=== PATIENT | female | born 1995 | race Two or more races ===

== ENCOUNTER → 2021-08-20 | Outpatient (CLI) | payer MEDICAID ==
[2021-08-20 13:58] LABS: Hematocrit 35.1 % (36.0-46.0); Mean Corpuscular Hemoglobin 30.7 pg (28.0-32.0); Mean Corpuscular Hgb Conc. 34.1 g/dL (32.0-36.0); Mean Corpuscular Volume 90.1 fL (80.0-100.0); Red Blood Cells 3.89 10^6/uL (4.0-5.20); Red Cell Distribution Width 12.9 % (11.8-14.3); White Blood Cell 14.5 10^3/uL (4.4-10.8)
[2021-08-20 14:09] LABS: Basophils % (manual) 0 (0.0-2.0); Metamyelocytes % 0; Myelocytes % 0; Promyelocytes % 0; Reactive Lymphocytes 0
[2021-08-20 14:10] LABS: Blast Cells 0
[2021-08-20 14:25] LABS: Band Neutrophils % (manual) 2; Eosinophils % (manual) 1 (0-7); Lymphocytes % (manual) 10 (10.0-50.0); Monocytes % (manual) 10 (0-12)
[2021-08-20 16:00] LABS: Urine Bacteria FEW /hpf (None Seen); Urine Blood Negative /uL (Negative); Urine Mucus FEW (None Seen); Urine WBC 5 /hpf (0 - 5)
== END | disposition home or self-care (01) ==
LOC: LAB 13:46
PROVIDERS: ATTEND Obstetrics & Gynecology Obstetrics
DX: Z34.80 Encounter for supervision of other normal pregnancy, unspecified trimester (principal)
CPT/HCPCS: 36415; 81001; 85007; 85027; 87086

== ENCOUNTER 2021-11-08 07:42 | Observation (INO) | payer MEDICAID ==
[2021-11-08] MEDS ORDERED: PREN-96 PO (12:31)
== END 2021-11-08 13:15 | disposition home or self-care (01) ==
LOC: LDRP 11:13
PROVIDERS: ADMIT Obstetrics & Gynecology; ATTEND Obstetrics & Gynecology
DX: O62.9 Abnormality of forces of labor, unspecified (principal); O48.0 Post-term pregnancy; Z3A.40 40 weeks gestation of pregnancy
CPT/HCPCS: 59025; 76818; 81002; G0378

== ENCOUNTER 2021-11-10 07:50 | Observation (INO) | payer MEDICAID ==
[~2021-11-10 07:50] MED LIST: PREN-96 PO
== END 2021-11-10 09:40 | disposition home or self-care (01) ==
LOC: LDRP 07:50
PROVIDERS: ADMIT Obstetrics & Gynecology; ATTEND Obstetrics & Gynecology
DX: O62.9 Abnormality of forces of labor, unspecified (principal); O48.0 Post-term pregnancy; Z3A.40 40 weeks gestation of pregnancy
CPT/HCPCS: 59025; 76818; 81002; 94762; G0378

== ENCOUNTER 2021-11-12 07:43 | Observation (INO) | payer MEDICAID ==
[~2021-11-12] VITALS: Ht 172.7 cm; Wt 72.6 kg
[2021-11-13] MEDS ORDERED: DOCU100C10 PO (06:30)
[2021-11-13] MEDS ORDERED: IBU600T PO (06:30)
== END 2021-11-12 09:46 | disposition home or self-care (01) ==
LOC: LDRP 08:00
PROVIDERS: ADMIT Obstetrics & Gynecology Obstetrics; ATTEND Obstetrics & Gynecology Obstetrics
DX: O62.9 Abnormality of forces of labor, unspecified (principal); O48.0 Post-term pregnancy; Z3A.40 40 weeks gestation of pregnancy
CPT/HCPCS: 59025; 76818; 81002; 94760; G0378

== ENCOUNTER 2021-11-12 11:25 | Inpatient (IN) | payer MEDICAID ==
[~2021-11-12] VITALS: Ht 172.7 cm; Wt 72.6 kg
[2021-11-12] MEDS ORDERED: LACTATED RINGER'S 1,000 ML IV SCH (11:45)
[2021-11-12] MEDS ORDERED: LIDOCAINE 2%HCL (LOCAL ANESTH.) INJ 10ml MDV IJ PRN (11:45)
[2021-11-12] MEDS ORDERED: BUTORPHANOL TARTRATE 2 MG/1 ML VIAL IV PRN ×2 (11:45)
[2021-11-12] MEDS ORDERED: WITCH HAZEL-GLYCERIN PAD TOP PRN (11:45)
[2021-11-12] MEDS ORDERED: DERMOPLAST 60ML BOTTLE TOP PRN (11:45)
[2021-11-12] MEDS ORDERED: PROMETHAZINE HCL 25 MG/ML 1ML IV PRN (11:45)
[2021-11-12] MEDS ORDERED: PHISODERM TOP SOLN 240ML BTL TOP PRN (11:45)
[2021-11-12 12:11] LABS: Basophils # (auto) 0.1 10 ^3/uL (0-0.2); Basophils % (auto) 0.8 % (0.0-2.0); Eosinophils # (auto) 0.1 10 ^3/uL (0-0.8); Eosinophils % (auto) 1.2 % (0.0-7.0); Hematocrit 32.3 % (36.0-46.0); Lymphocytes # (auto) 1.7 10 ^3/uL (0.4-5.4); Lymphocytes % (auto) 18.9 % (10.0-50.0); Mean Corpuscular Hemoglobin 28.7 pg (28.0-32.0); Mean Corpuscular Hgb Conc. 33.9 g/dL (32.0-36.0); Mean Corpuscular Volume 84.7 fL (80.0-100.0); Monocytes # (auto) 0.4 10 ^3/uL (0-1.3); Monocytes % (auto) 4.3 % (0.0-12.0); Neutrophils # (auto) 6.7 10 ^3/uL (1.6-8.6); Neutrophils % (auto) 74.8 % (37.0-80.0); Nucleated Red Blood Cells % 0.2 %; Red Blood Cells 3.81 10^6/uL (4.0-5.20); Red Cell Distribution Width 14.2 % (11.8-14.3); White Blood Cell 8.9 10^3/uL (4.4-10.8)
[2021-11-12 12:25] LABS: Albumin 2.7 g/dL (3.4-5.0); BUN/Creatinine Ratio 7.1; Calcium 8.9 mg/dL (8.5-10.1); Potassium 3.6 mmol/L (3.5-5.1)
[2021-11-12 12:29] LABS: INR 0.96 (0.9-1.15); Partial Thromboplastin Time 22.8 sec (23.6-33.0)
[2021-11-12] MEDS ORDERED: miSOPROStol 50 MCG per PRE-CUT 1/2 TAB PO PRN (12:30)
[2021-11-12] MEDS ORDERED: OXYTOCIN 10UNIT/ML 1ML VIAL IM ONE (12:30)
[2021-11-12] MEDS ORDERED: TERBUTALINE SULFATE 1 MG/ML 1ML VIAL SC PRN (12:30)
[2021-11-12] MEDS ORDERED: LACT. RINGERS/OXYTOCIN 20UNITS 500 ML IV ONE ×2 (12:30→13:00)
[2021-11-12] MEDS ORDERED: LACT. RINGERS/OXYTOCIN 20UNITS 1,000 ML IV SCH (12:30)
[2021-11-12 12:34] LABS: Bilirubin, Total 0.7 mg/dL (0.2-1.0); Total Protein 6.5 g/dL (6.4-8.2)
[2021-11-12 12:54] LABS: Urine Bacteria NONE SEEN /hpf (None Seen); Urine Blood Negative /uL (Negative); Urine Hyaline Cast FEW /lpf (0 - 2); Urine Specific Gravity 1.005 (1.001-1.035); Urine WBC 1 /hpf (0 - 5)
[2021-11-12 13:21] LABS: Alcohol, Urine < 3.0 mg/dL (0-10); Amphetamine Screen, Urine NEGATIVE (NEGATIVE); Barbiturate Scree,Urine NEGATIVE (NEGATIVE); Benzodiazephine Screen, Urine NEGATIVE (NEGATIVE); Cannabinoid Screen, Urine NEGATIVE (NEGATIVE); Cocaine Screen, Urine NEGATIVE (NEGATIVE); Opiate Scree,Urine NEGATIVE (NEGATIVE); Phencyclidine Screen, Urine NEGATIVE (NEGATIVE)
[2021-11-12] MEDS ORDERED: ROPIVACAINE HCL 200 ML EPI SCH ×2 (20:30→22:30)
[2021-11-12] MEDS ORDERED: ePHEDrine SULFATE 50 MG/ML AMP IV ONE (20:30)
[2021-11-12] MEDS ORDERED: LACTATED RINGER'S 500 ML IV ONE (20:30)
[2021-11-12] MEDS ORDERED: NALOXONE HCL 0.4 MG/ML VIAL IV ONE (20:30)
[2021-11-12] MEDS ORDERED: LIDOCAINE HCL 2 %PF INJ 10ML AMP IJ ONE (20:30)
[2021-11-12] MEDS ORDERED: fentaNYL CITRATE 100 MCG/2 ML VL IV ONE (20:30)
[2021-11-13] MEDS ORDERED: miSOPROStol 100 mcg TAB ONE (05:58)
[2021-11-13] MEDS ORDERED: ONDANSETRON ODT 4 MG TAB PO PRN (06:30)
[2021-11-13] MEDS ORDERED: IBU600T PO (06:30)
[2021-11-13] MEDS ORDERED: DOCU100C10 PO (06:30)
[2021-11-13] MEDS ORDERED: ACETAMINOPHEN 325 MG TAB PO PRN (06:30)
[2021-11-13] MEDS: IBUPROFEN 600 MG TAB PO SCH ×2 (08:05→14:18)
[2021-11-13 08:06] LABS: RPR Non Reactive (Non Reactive)
[2021-11-13 11:04] VITALS: BP 105/52
[2021-11-13 15:00] VITALS: BP 111/71
[2021-11-13 18:48] VITALS: BP 113/66
[2021-11-13] MEDS ORDERED: DOCUSATE SOD 100 MG CAP PO SCH (22:00)
[2021-11-13] MEDS ORDERED: IBUPROFEN 600 MG TAB PO PRN (22:00)
[2021-11-13 22:53] VITALS: BP 118/77
[2021-11-14 03:10] VITALS: BP 115/72
[2021-11-14 07:05] VITALS: BP 108/72
== END 2021-11-14 10:25 | disposition home or self-care (01) | DRG 560 ==
LOC: LDRP 11:25
PROVIDERS: ADMIT Obstetrics & Gynecology Obstetrics; ATTEND Obstetrics & Gynecology Obstetrics
PROC: 3E0R3BZ Introduction of Anesthetic Agent into Spinal Canal, Percutaneous Approach (ICD-10-PCS; principal; 2021-11-13)
PROC: 00HU33Z Insertion of Infusion Device into Spinal Canal, Percutaneous Approach (ICD-10-PCS; 2021-11-13)
PROC: 10E0XZZ Delivery of Products of Conception, External Approach (ICD-10-PCS; 2021-11-13)
PROC: 0HQ9XZZ Repair Perineum Skin, External Approach (ICD-10-PCS; 2021-11-13)
DX: O48.0 Post-term pregnancy (principal); Z37.0 Single live birth; O70.0 First degree perineal laceration during delivery; Z20.822 Contact with and (suspected) exposure to COVID-19; Z3A.40 40 weeks gestation of pregnancy
CPT/HCPCS: 36415; 59409; 62282; 80053; 80307; 81001; 81002; 85025; 85610; 85730; 86592; 86850; 86900; 86901; 94760; 96360; 96361; 96365; 96366; G0378; J2590